=== PATIENT | female | born 1960 | race Caucasian/White ===

== ENCOUNTER 2016-11-16 14:34 | Emergency (ER) | payer MEDICAID ==
[~2016-11-16] VITALS: Wt 65.5 kg
[~2016-11-16 14:34] MED LIST: ACET1TAB40 PO; CALC600T11 PO; HYDR-3498 PO; IBUP-1542 PO; LEVO125T79 PO; LISI-524 PO; METO25TA4 PO; NAPR-260 PO
[2016-11-16] MEDS ORDERED: traMADol 50 MG TAB PO ONE (17:30)
[2016-11-16] MEDS ORDERED: ONDANSETRON (ODT) 4 MG TAB ODT STA (17:30)
[2016-11-16 17:39] LABS: URINE BLOOD (Dip) POC Negative (NEGATIVE)
[2016-11-16] MEDS ORDERED: ULT50 PO (17:51)
[2016-11-16 18:31] VITALS: BP 137/89; PULSE 74; RESP 18; TEMP 98.1
--- NOTE | 2016-11-16 18:43 | ERD ---
ER Documentation Chief Complaint Date/Time DATE: 11/16/16 TIME: 18:42 Chief Complaint abd pain radiating to head since last night. no neuro def HPI Patient is a 48-year-old female with hypertension who presents with headache and abdominal pain. She said the pain comes and goes. It is been there for 2 days. She has no fevers. She has no nausea, vomiting, or diarrhea. She tried to Tylenol. Upon review of old medical records the patient has multiple visits to the ER for similar type complaints. Her primary doctor is Dr. Jamie Adame. ROS All systems reviewed and are negative except as per history of present illness. Medications Home Meds Active Scripts Tramadol HCl (Tramadol HCl) 50 Mg Tablet, 50 MG PO Q6 Y for PAIN, #7 TAB Prov:MENA GUZMAN MD 11/16/16 Acetaminophen with Codeine (Acetaminophen-Cod #3 Tablet) 1 Each Tablet, 1 TAB PO Q6H Y for PAIN, #14 TAB Prov:MARY HUMMEL MD 08/19/16 Ibuprofen* (Motrin*) 600 Mg Tab, 600 MG PO Q6, #20 TAB Prov:MARY HUMMEL MD 08/19/16 Ibuprofen* (Motrin*) 600 Mg Tab, 600 MG PO Q6, #30 TAB Prov:LUCIA REYES 06/07/16 Naproxen* (Naprosyn*) 500 Mg Tablet, 500 MG PO BID Y for PAIN AND/OR INFLAMMATION, #20 TAB Prov:MARIANA COX DO 05/05/16 Hydrocodone Bit-Acetaminophen* ([place]*) 5-325 Mg Tab, 1 TAB PO Q6 Y for PAIN, # 10 TAB Prov:SCOTT POOLE PA-C 03/28/16 Reported Medications Calcium Carbonate* (Calcium Carbonate*) 600 MG Ca Tab, 600 MG PO TID, TAB 05/05/16 Levothyroxine Sodium* (Synthroid*) 125 Mcg Tablet, 125 MCG PO BEFORE BREAKFAST, #30 TAB 05/05/16 Metoprolol Tartrate* (Lopressor*) 25 Mg Tablet, 25 MG PO BID, #60 TAB 01/28/16 Lisinopril* (Zestril*) 10 Mg Tablet, 10 MG PO DAILY 11/09/12 Allergies Allergies: Coded Allergies: No Known Drug Allergies (Verified Allergy, Unknown, 06/07/16) Uncoded Allergies: GENERAL ANESTHESIA (Allergy, Intermediate, GENERALIZED SKIN RASH, 02/25/14) PMhx/Soc History of Surgery: Yes (CHOLECYSTECTOMY, THYROIDECTOMY ) Anesthesia Reaction: No Hx Neurological Disorder: Yes (MIGRAINES) Hx Respiratory Disorders: No Hx Cardiac Disorders: Yes (HTN) Hx Psychiatric Problems: No Hx Miscellaneous Medical Probl: Yes (PRE-DIABETES ) Hx Alcohol Use: No Hx Substance Use: No Hx Tobacco Use: No Smoking Status: Never smoker FmHx Family History: diabetes Physical Exam Vitals Vital Signs Date Time Temp Pulse Resp B/P Pulse Ox O2 Delivery O2 Flow Rate FiO2 11/16/16 18:31 98.1 74 18 137/89 97 11/16/16 14:37 98.7 81 20 148/76 98 Physical Exam Const: No acute distress Head: Atraumatic Eyes: Normal Conjunctiva ENT: Normal External Ears, Nose and Mouth. Neck: Full range of motion..~ No meningismus. Resp: Clear to auscultation bilaterally Cardio: Regular rate and rhythm, no murmurs Abd: Soft, non tender, non distended. Normal bowel sounds Skin: No petechiae or rashes Back: No midline or flank tenderness Ext: No cyanosis, or edema Neur: Awake and alert Psych: Normal Mood and Affect Results 24 hrs Laboratory Tests Test 11/16/16 17:39 Bedside Urine Blood Negative Bedside Urine Glucose (UA) Negative Bedside Urine Ketones (LAB) Negative Bedside Urine Leukocyte Esterase (L Negative Bedside Urine Nitrite (LAB) Negative Bedside Urine Protein (LAB) 1+ Bedside Urine pH (LAB) 8.5 Current Medications Medications (Trade) Dose Ordered Sig/Jonelle Route PRN Reason Start Time Stop Time Status Last Admin Dose Admin Ondansetron HCl (Zofran Odt) 4 mg ONCE STAT ODT 11/16/16 17:30 11/16/16 17:31 DC 11/16/16 17:34 Tramadol HCl (Ultram) 50 mg ONCE ONCE PO 11/16/16 17:30 11/16/16 17:31 DC 11/16/16 17:39 Procedures/MDM Patient is a 56-year-old female with hypertension who presents with headache and abdominal pain. Her physical exam is benign. She has multiple visits for similar type complaints. Urine dip is negative for infection. She was given tramadol and Zofran for symptomatically relief. At this point I doubt intracranial hemorrhage or stroke. I doubt serious intra-abdominal process such as cholecystitis, pancreatitis, appendicitis, or bowel obstruction. Do not believe the patient requires further workup. I do believe she requires close follow-up with her primary doctor tomorrow morning for reevaluation. She can return sooner for any worsening symptoms. Departure Diagnosis: Primary Impression: Headache Headache type: unspecified Headache chronicity pattern: acute headache Intractability: not intractable Qualified Code: R51 - Acute nonintractable headache, unspecified headache type Additional Impression: Abdominal pain Abdominal location: unspecified location Qualified Code: R10.9 - Abdominal pain, unspecified location Condition: Fair Patient Instructions: Abdominal Pain, Self-Care for Headaches Additional Instructions: Llame al doctor MAANA y jennifer izabela HANS PARA DENTRO DE 1-2 AGUILERA.Dgale a la secretaria que nosotros le instruimos hacer esta hans.Avise o llame si tiwari condicin se empeora antes de la hans. Regresa aqui si peor o no mejor. MENA GUZMAN MD Nov 16, 2016 18:43
== END 2016-11-16 18:33 | disposition home or self-care (01) ==
LOC: E/R 14:34
DX: R51 Headache (principal); R10.9 Unspecified abdominal pain; I10 Essential (primary) hypertension
CPT/HCPCS: 81003; Z7502; Z7610; 99283

== ENCOUNTER 2016-11-29 20:48 | Emergency (ER) | payer MEDICAID ==
[~2016-11-29] VITALS: Ht 160 cm; Wt 80.0 kg
[~2016-11-29 20:48] MED LIST changes: +LEVO125T PO; -LEVO125T79 PO; +TRAM50TA2 PO
[2016-11-29 21:56] VITALS: Ht 160 cm; Wt 80.0 kg
[2016-11-30] MEDS ORDERED: KETOROLAC 30 MG INJ IM STA (00:47)
[2016-11-30] MEDS ORDERED: LORA-441 PO (00:49)
--- NOTE | 2016-11-30 00:53 | ERD ---
ER Documentation Chief Complaint Date/Time DATE: 11/30/16 TIME: 00:50 Chief Complaint headache, l side pain HPI 56-year-old woman here with multiple complaints including headache similar to previous episodes, sharp nonexertional nonradiating chest pain, and left upper abdominal pain. She has had all these symptoms before and states she has them about twice per week she has had multiple previous ED evaluations and workups, and imaging studies have previously all been unremarkable. Patient denies vomiting or diarrhea, no weight loss, no blood per rectum or melena, no exertional chest pain, no shortness of breath, no suicidal homicidal ideation. ROS All systems reviewed and are negative except as per history of present illness. Medications Home Meds Active Scripts Lorazepam* (Ativan*) 0.5 Mg Tablet, 0.5 MG PO Q8H Y for ANXIETY, #15 TAB Prov:VAL HORTON MD 11/30/16 Tramadol HCl (Tramadol HCl) 50 Mg Tablet, 50 MG PO Q6 Y for PAIN, #7 TAB Prov:MENA GUZMAN MD 11/16/16 Acetaminophen with Codeine (Acetaminophen-Cod #3 Tablet) 1 Each Tablet, 1 TAB PO Q6H Y for PAIN, #14 TAB Prov:MARY HUMMEL MD 08/19/16 Ibuprofen* (Motrin*) 600 Mg Tab, 600 MG PO Q6, #20 TAB Prov:MARY HUMMEL MD 08/19/16 Ibuprofen* (Motrin*) 600 Mg Tab, 600 MG PO Q6, #30 TAB Prov:LUCIA REYES 06/07/16 Naproxen* (Naprosyn*) 500 Mg Tablet, 500 MG PO BID Y for PAIN AND/OR INFLAMMATION, #20 TAB Prov:MARIANA COX DO 05/05/16 Hydrocodone Bit-Acetaminophen* ([place]*) 5-325 Mg Tab, 1 TAB PO Q6 Y for PAIN, # 10 TAB Prov:SCOTT POOLE PA-C 03/28/16 Reported Medications Calcium Carbonate* (Calcium Carbonate*) 600 MG Ca Tab, 600 MG PO TID, TAB 05/05/16 Levothyroxine Sodium* (Synthroid*) 125 Mcg Tablet, 125 MCG PO BEFORE BREAKFAST, #30 TAB 05/05/16 Metoprolol Tartrate* (Lopressor*) 25 Mg Tablet, 25 MG PO BID, #60 TAB 01/28/16 Lisinopril* (Zestril*) 10 Mg Tablet, 10 MG PO DAILY 11/09/12 Allergies Allergies: Coded Allergies: No Known Drug Allergies (Verified Allergy, Unknown, 06/07/16) Uncoded Allergies: GENERAL ANESTHESIA (Allergy, Intermediate, GENERALIZED SKIN RASH, 02/25/14) PMhx/Soc Chronic recurrent headaches, anxiety, hypertension, previous cholecystectomy, hypothyroidism History of Surgery: Yes (CHOLECYSTECTOMY, THYROIDECTOMY ) Anesthesia Reaction: No Hx Neurological Disorder: Yes (MIGRAINES) Hx Respiratory Disorders: No Hx Cardiac Disorders: Yes (HTN) Hx Psychiatric Problems: No Hx Miscellaneous Medical Probl: Yes (PRE-DIABETES ) Hx Alcohol Use: No Hx Substance Use: No Hx Tobacco Use: No Smoking Status: Never smoker FmHx Family History: diabetes Physical Exam Vitals Vital Signs Date Time Temp Pulse Resp B/P Pulse Ox O2 Delivery O2 Flow Rate FiO2 11/30/16 01:20 99.0 75 20 135/80 98 11/29/16 21:56 99.0 73 20 140/84 98 Physical Exam GENERAL: Well-developed, well-nourished, severely anxious and tearful HEENT: Moist mucous membranes, pink conjunctiva, no cervical spine tenderness or step-off deformities, no goiter, no jaundice or icterus, extraocular movements intact without pain. No submandibular induration, and no pharyngeal erythema NEURO: Alert and oriented 3, cranial nerves II through XII intact bilaterally, pupils equal round reactive to light, no focal deficits or facial asymmetry, sensation intact distally Strength 5/5 in upper and lower extremities bilaterally CARDIAC: Regular rate and rhythm, no murmurs rubs or gallops LUNGS: Clear bilaterally no wheezing crackles or stridor ABDOMEN: Soft nontender, no guarding, no rigidity, no rebound, no psoas sign no obturator sign. Normoactive bowel sounds SKIN: Warm and dry to touch, no abrasions, contusions, or hematomas, no lacerations, no ecchymosis, no target lesions, and without ulcers EXTREMITIES: No clubbing cyanosis or edema, calves are bilaterally symmetrical, no Homans sign, no popliteal cord sign. Distal pulses equal and bilateral PSYCH: Anxious Results 24 hrs Current Medications Medications (Trade) Dose Ordered Sig/Jonelle Route PRN Reason Start Time Stop Time Status Last Admin Dose Admin Ketorolac Tromethamine (Toradol) 30 mg ONCE STAT IM 11/30/16 00:47 11/30/16 00:56 DC 11/30/16 01:07 Lorazepam (Ativan) 1 mg ONCE ONCE PO 11/30/16 01:00 11/30/16 01:01 DC 11/30/16 01:07 Procedures/MDM I administered lorazepam 1 mg p.o. and Toradol 15 mg intramuscular injection for pain control with good relief. EKG performed, read by me: 65 bpm, normal sinus rhythm, normal axis, no acute ST segment changes, narrow QRS complex, with good R-wave progression in precordial leads. Normal EKG I reviewed the patient's past medical history she has had multiple similar presentations for headaches and abdominal pain which are her complaints today. She has had at least 6 CT scans of the brain which are mostly unremarkable. Previous ED workups have all been unremarkable and is seems patient is suffering from severe anxiety and depression. My recommendations were provided to her for outpatient management I find no reason at this time for any further intervention, imaging, or admission Differential diagnoses considered, included but not limited to acute coronary syndrome, pulmonary embolism, aortic dissection, abdominal aortic aneurysm, sepsis, stroke, meningitis, encephalitis, pneumonia, appendicitis, cholecystitis , bowel obstruction, pyelonephritis, nephrolithiasis, cystitis, as well as metabolic, hematologic, and electrolyte abnormalities. As well as abscess, cellulitis, fractures, and dislocations. Patient feels much better at this time, and vital signs are normal, symptoms have improved. I did give strict instructions to return to the ED if symptoms continue or worsen, patient will otherwise follow-up with primary care physician. Patient understood instructions and agreed to plan. Departure Diagnosis: Primary Impression: Anxiety Additional Impressions: Headache Headache type: tension-type Headache chronicity pattern: acute headache Intractability: not intractable Qualified Code: G44.209 - Acute non intractable tension-type headache Chronic pain Chronic pain type: chronic pain syndrome Qualified Code: G89.4 - Chronic pain syndrome Condition: Good Patient Instructions: Anxiety Reaction, Headache, Tension VAL HORTON MD Nov 30, 2016 00:53
[2016-11-30] MEDS ORDERED: LORAZEPAM 1 MG TAB PO ONE (01:00)
[2016-11-30 01:20] VITALS: BP 135/80; PULSE 75; RESP 20; TEMP 99
== END 2016-11-30 01:20 | disposition home or self-care (01) ==
LOC: E/R 20:48
DX: F41.9 Anxiety disorder, unspecified (principal); G44.209 Tension-type headache, unspecified, not intractable; G89.4 Chronic pain syndrome; I10 Essential (primary) hypertension; E03.9 Hypothyroidism, unspecified
CPT/HCPCS: J1885; Z7610; 93005; 96372

== ENCOUNTER 2017-02-01 06:57 | Emergency (ER) | payer MEDICAID ==
[~2017-02-01] VITALS: Ht 157.5 cm; Wt 78.0 kg
[~2017-02-01 06:57] MED LIST changes: +LORA-441 PO
[2017-02-01 07:01] VITALS: Ht 157.5 cm; Wt 78.0 kg
[2017-02-01] MEDS ORDERED: IBUP-1542 PO (07:21)
[2017-02-01] MEDS ORDERED: IBUPROFEN 800 MG TAB PO ONE (07:30)
--- NOTE | 2017-02-01 07:30 | ERD ---
ER Documentation Chief Complaint Date/Time DATE: 02/01/17 TIME: 07:30 Chief Complaint left arm pain x 1 week HPI Patient is a 48-year-old female with anxiety and hypertension who presents with left-sided arm pain. She said that she has left-sided arm pain for the past 1 week. She said that she feels numbness to her fingers which lasts seconds at a time. She tried MAPAP. She called her primary doctor but there was no appointment available. She is also requesting an allergy medicine. Upon review of old medical record she has multiple visits to the ER for various pain complaints. Review of the emergency department information exchange shows multiple visits to the emergency department as well. ROS All systems reviewed and are negative except as per history of present illness. Medications Home Meds Active Scripts Ibuprofen* (Motrin*) 600 Mg Tab, 600 MG PO Q6H Y for PAIN AND OR ELEVATED TEMP, #30 TAB Prov:MENA GUZMAN MD 02/01/17 Lorazepam* (Ativan*) 0.5 Mg Tablet, 0.5 MG PO Q8H Y for ANXIETY, #15 TAB Prov:VAL HORTON MD 11/30/16 Tramadol HCl (Tramadol HCl) 50 Mg Tablet, 50 MG PO Q6 Y for PAIN, #7 TAB Prov:MENA GUZMAN MD 11/16/16 Acetaminophen with Codeine (Acetaminophen-Cod #3 Tablet) 1 Each Tablet, 1 TAB PO Q6H Y for PAIN, #14 TAB Prov:MARY HUMMEL MD 08/19/16 Ibuprofen* (Motrin*) 600 Mg Tab, 600 MG PO Q6, #20 TAB Prov:MARY HUMMEL MD 08/19/16 Ibuprofen* (Motrin*) 600 Mg Tab, 600 MG PO Q6, #30 TAB Prov:LUCIA REYES 06/07/16 Naproxen* (Naprosyn*) 500 Mg Tablet, 500 MG PO BID Y for PAIN AND/OR INFLAMMATION, #20 TAB Prov:MARIANA COX DO 05/05/16 Hydrocodone Bit-Acetaminophen* ([place]*) 5-325 Mg Tab, 1 TAB PO Q6 Y for PAIN, # 10 TAB Prov:SCOTT POOLE PA-C 03/28/16 Reported Medications Calcium Carbonate* (Calcium Carbonate*) 600 MG Ca Tab, 600 MG PO TID, TAB 7/6/16 Levothyroxine Sodium* (Synthroid*) 125 Mcg Tablet, 125 MCG PO BEFORE BREAKFAST, #30 TAB 05/05/16 Metoprolol Tartrate* (Lopressor*) 25 Mg Tablet, 25 MG PO BID, #60 TAB 01/28/16 Lisinopril* (Zestril*) 10 Mg Tablet, 10 MG PO DAILY 11/09/12 Allergies Allergies: Coded Allergies: No Known Allergy (Unverified , 02/01/17) PMhx/Soc History of Surgery: Yes (CHOLECYSTECTOMY 2012, THYROIDECTOMY 2015 ) Anesthesia Reaction: No Hx Neurological Disorder: Yes (MIGRAINES) Hx Respiratory Disorders: No Hx Cardiac Disorders: Yes (HTN) Hx Psychiatric Problems: No Hx Miscellaneous Medical Probl: Yes (PRE-DIABETES ) Hx Alcohol Use: No Hx Substance Use: No Hx Tobacco Use: No FmHx Family History: No coronary disease Physical Exam Vitals Vital Signs Date Time Temp Pulse Resp B/P Pulse Ox O2 Delivery O2 Flow Rate FiO2 02/01/17 07:01 98.1 67 18 140/80 99 Physical Exam Const: No acute distress Head: Atraumatic Eyes: Normal Conjunctiva ENT: Normal External Ears, Nose and Mouth. Neck: Full range of motion..~ No meningismus. Resp: Clear to auscultation bilaterally Cardio: Regular rate and rhythm, no murmurs Abd: Soft, non tender, non distended. Normal bowel sounds Skin: No petechiae or rashes Back: No midline or flank tenderness Ext: No cyanosis, or edema, no deformity noted, pulses are 2+ bilateral upper extremities Neur: Awake and alert Psych: Normal Mood and Affect Results 24 hrs Current Medications Medications (Trade) Dose Ordered Sig/Jonelle Route PRN Reason Start Time Stop Time Status Last Admin Dose Admin Ibuprofen (Motrin) 800 mg ONCE ONCE PO 02/01/17 07:30 02/01/17 07:31 DC 02/01/17 07:27 Procedures/MDM EKG read by me: Rate/Rhythm: Regular rate and rhythm at a normal rate Intervals: Normal Impression: No evidence of ischemia or arrhythmia Patient is a 56-year-old female with left sided arm pain. Her EKG is normal. She has no neurovascular compromise. She has good nerve function in the left upper extremity. She is able to give an okay sign, able to give a thumbs up, able to touch all fingers to her thumb, able to spread fingers. At this point I believe this is acute on chronic pain. I do not believe she requires further workup at this time. The patient has a normal EKG. The patient will need to follow-up with her primary doctor within 1-2 days. She can return for any worsening symptoms. Departure Diagnosis: Primary Impression: Pain of left arm Condition: Fair Patient Instructions: Muscle Strain, Extremity Referrals: SILVIA STRANGE MD (PCP) Additional Instructions: Llame al doctor MAANA y jennifer izabela HANS PARA DENTRO DE 1-2 AGUILERA.Dgale a la secretaria que nosotros le instruimos hacer esta hans.Avise o llame si tiwari condicin se empeora antes de la hans. Regresa aqui si peor o no mejor. MENA GUZMAN MD Feb 01, 2017 07:30
[2017-02-01] MEDS ORDERED: FLUT9.9S NASAL (07:36)
== END 2017-02-01 07:53 | disposition home or self-care (01) ==
LOC: FTE 06:57
DX: M79.602 Pain in left arm (principal); I10 Essential (primary) hypertension
CPT/HCPCS: 93005; Z7502; Z7610

== ENCOUNTER 2017-04-04 07:03 | Emergency (ER) | payer MEDICAID ==
[~2017-04-04] VITALS: Ht 154.9 cm; Wt 66.5 kg
[~2017-04-04 07:03] MED LIST changes: +FLUT9.9S NASAL
[2017-04-04 07:06] VITALS: Ht 154.9 cm; Wt 66.5 kg
[2017-04-04 08:00] LABS: ADD UMIC NO; URINE BILIRUBIN (Dip) NEGATIVE (NEGATIVE); URINE BLOOD (Dip) NEGATIVE (NEGATIVE); URINE COLOR LT. YELLOW (YELLOW); URINE GLUCOSE (Dip) NEGATIVE (NEGATIVE); URINE KETONES (Dip) NEGATIVE (NEGATIVE); URINE LEUKOCYTE ESTERASE (Dip) NEGATIVE (NEGATIVE); URINE NITRITE (Dip) NEGATIVE (NEGATIVE); URINE TOTAL PROTEIN (Dip) NEGATIVE (NEGATIVE); URINE UROBILINOGEN (Dip) 0.2 E.U./dL (0.1-1.0)
[2017-04-04] MEDS ORDERED: IBUP-1542 PO (08:14)
[2017-04-04] MEDS ORDERED: FLUC150T17 PO (08:14)
--- NOTE | 2017-04-04 08:17 | ERD ---
ER Documentation Chief Complaint Date/Time DATE: 04/04/17 TIME: 08:15 Chief Complaint painful urination and back pain since tuesday HPI This 48-year-old female complains of a 3 day history of some vaginal irritation and some mild dysuria. She has multiple complaints as well including with low back pain and left upper chest wall pain. She denies any fevers, vomiting, shortness of breath or sustained anterior chest pain. Patient has a noticeable vaginal discharge ROS All systems reviewed and are negative except as per history of present illness. Medications Home Meds Active Scripts Fluconazole* (Diflucan*) 150 Mg Tablet, 150 MG PO ONCE, #1 TAB Prov:MARY HUMMEL MD 04/04/17 Ibuprofen* (Motrin*) 600 Mg Tab, 600 MG PO Q6, #20 TAB Prov:MARY HUMMEL MD 04/04/17 Fluticasone Propionate (Flonase Allergy Relief) 9.9 Ml [place].susp, 1 SPRAY NASAL DAILY, #1 BOTTLE TO EACH NOSTRIL Prov:MENA GUZMAN MD 02/01/17 Ibuprofen* (Motrin*) 600 Mg Tab, 600 MG PO Q6H Y for PAIN AND OR ELEVATED TEMP, #30 TAB Prov:MENA GUZMAN MD 02/01/17 Lorazepam* (Ativan*) 0.5 Mg Tablet, 0.5 MG PO Q8H Y for ANXIETY, #15 TAB Prov:VAL HORTON MD 11/30/16 Tramadol HCl (Tramadol HCl) 50 Mg Tablet, 50 MG PO Q6 Y for PAIN, #7 TAB Prov:MENA GUZMAN MD 11/16/16 Acetaminophen with Codeine (Acetaminophen-Cod #3 Tablet) 1 Each Tablet, 1 TAB PO Q6H Y for PAIN, #14 TAB Prov:MARY HUMMEL MD 08/19/16 Ibuprofen* (Motrin*) 600 Mg Tab, 600 MG PO Q6, #20 TAB Prov:MARY HUMMEL MD 08/19/16 Ibuprofen* (Motrin*) 600 Mg Tab, 600 MG PO Q6, #30 TAB Prov:LUCIA REYES 06/07/16 Naproxen* (Naprosyn*) 500 Mg Tablet, 500 MG PO BID Y for PAIN AND/OR INFLAMMATION, #20 TAB Prov:MARIANA COX DO 05/05/16 Hydrocodone Bit-Acetaminophen* ([place]*) 5-325 Mg Tab, 1 TAB PO Q6 Y for PAIN, # 10 TAB Prov:SCOTT POOLE PA-C 03/28/16 Reported Medications Calcium Carbonate* (Calcium Carbonate*) 600 MG Ca Tab, 600 MG PO TID, TAB 05/05/16 Levothyroxine Sodium* (Synthroid*) 125 Mcg Tablet, 125 MCG PO BEFORE BREAKFAST, #30 TAB 05/05/16 Metoprolol Tartrate* (Lopressor*) 25 Mg Tablet, 25 MG PO BID, #60 TAB 01/28/16 Lisinopril* (Zestril*) 10 Mg Tablet, 10 MG PO DAILY 11/09/12 Allergies Allergies: Coded Allergies: No Known Allergy (Unverified , 04/04/17) PMhx/Soc History of Surgery: Yes (CHOLECYSTECTOMY 2012, THYROIDECTOMY 2015 ) Anesthesia Reaction: No Hx Neurological Disorder: Yes (MIGRAINES) Hx Respiratory Disorders: No Hx Cardiac Disorders: Yes (HTN) Hx Psychiatric Problems: No Hx Miscellaneous Medical Probl: Yes (PRE-DIABETES ) Hx Alcohol Use: No Hx Substance Use: No Hx Tobacco Use: No Smoking Status: Never smoker Physical Exam Vitals Vital Signs Date Time Temp Pulse Resp B/P Pulse Ox O2 Delivery O2 Flow Rate FiO2 04/04/17 07:06 98.3 77 17 131/76 94 Physical Exam Const: [] Alert, [id number] per Head: Atraumatic Eyes: Normal Conjunctiva ENT: Normal External Ears, Nose and Mouth. Neck: Full range of motion..~ No meningismus. Resp: Clear to auscultation bilaterally Cardio: Regular rate and rhythm, no murmurs. Mild reproducible left upper chest wall pain below the clavicle. Abd: Soft, non tender, non distended. Normal bowel sounds Skin: No petechiae or rashes Back: No midline or flank tenderness Ext: No cyanosis, or edema Neur: Awake and alert Psych: Normal Mood and Affect Results 24 hrs Laboratory Tests Test 04/04/17 07:25 Urine Color LT. YELLOW Urine Clarity CLEAR Urine pH 6.0 Urine Specific [place] <=1.005 Urine Ketones NEGATIVE Urine Nitrite NEGATIVE Urine Bilirubin NEGATIVE Urine Urobilinogen 0.2 E.U./dL Urine Leukocyte Esterase NEGATIVE Urine Hemoglobin NEGATIVE Urine Glucose NEGATIVE% Urine Total Protein NEGATIVE Procedures/MDM And is negative for leukocytes, nitrites, blood glucose. EKG: Rate/Rhythm: [Normal Sinus Rhythm] rate equals 64 QRS, ST, T-waves: [No changes consistent w/ acute ischemia] Impression: [No evidence of ischemia or arrhythmia]. Impression abnormal EKG Patient presents with multiple complaints including dysuria and vaginal irritation, low back pain left upper chest wall.. She will be treated empirically for vaginitis with Diflucan and ibuprofen for low back pain. The patient was stable with no new complaints during the ER course. Clinically, there is no current evidence to suggest meningitis, sepsis, acute abdomen, aortic dissection, pneumonia, acute coronary syndrome, pulmonary embolism, or any other emergent condition appearing to require further evaluation or hospitalization. The patient should certainly return for any new or worsening symptoms per the aftercare instructions. They should otherwise follow-up with her primary care doctor for reevaluation this week. Departure Diagnosis: Primary Impression: Genitourinary symptoms Additional Impressions: Back pain Back pain location: low back pain Chronicity: unspecified Back pain laterality: unspecified Sciatica presence: without sciatica Qualified Code: M54.5 - Low back pain without sciatica, unspecified back pain laterality, unspecified chronicity Chest wall pain Condition: Stable Patient Instructions: Dysuria, Back And Neck Pain, General [facility]errals[facility] Usted se cameron hecho un examen mdico de control que le indica que no est en [place] condicin que requiera tratamiento urgente en el Departamento de Emergencia. Un estudio ms profundo y el tratamiento de tiwari condicin pueden esperar sin ningn riesgo hasta que usted sea atendida/o en el consultorio de tiwari mdico o [place] cl vel. Es responsabilidad suya arreglar [place] kiesha para el seguimiento del ct. MANEJO DE CONDICIONES NO URGENTES EN EL FUTURO 1) Si usted tiene un mdico de atencin primaria: Usted debera llamar a tiwari mdico de atencin primaria antes de venir al departamento de emergencia. Despus de las horas de consultorio, tiwari doctor o tiwari asociado/a est disponible por telfono. El mdico o enfermero de david en el servicio telefnico puede asesorarle por kathleen medio para atender el problema, o ct contrario se puede programar [place] kiesha. 2) Si usted no tiene un mdico de atencin primaria: Llame al mdico o clnica de referencia que aparece abajo erma las horas de consultorio para hacer [place] kiesha para que le vean. CLINICAS: [facility] [phone] [facility] [facility] [phone] [address] [facility] [facility] [phone] [address] [facility]. [place] [phone] [facility] [place] [phone] [address] [facility]. [phone] [address] Additional Instructions: Examines normal hoy. Cheque otro vez con tiwari doctor primario en el proximo bishop or regresa para mas o nueva simptomas. MARY HUMMEL MD Apr 04, 2017 08:17
== END 2017-04-04 08:26 | disposition home or self-care (01) ==
LOC: FTE 07:03
DX: R30.0 Dysuria (principal); N89.8 Other specified noninflammatory disorders of vagina; M54.5 Low back pain; R07.89 Other chest pain; I10 Essential (primary) hypertension
CPT/HCPCS: 81003; 93005

== ENCOUNTER 2017-10-27 15:46 | Observation (INO) | END 2017-10-28 16:00 | disposition home or self-care (01) ==

== ENCOUNTER 2018-04-16 12:08 | Emergency (ER) | END 2018-04-16 17:36 | disposition home or self-care (01) ==

== ENCOUNTER 2018-05-13 11:56 | Inpatient (IN) | END 2018-05-16 16:58 | disposition home or self-care (01) | DRG 440 ==

== ENCOUNTER 2018-05-17 14:04 | Emergency (ER) | END 2018-05-17 15:56 | disposition home or self-care (01) ==

== ENCOUNTER 2018-06-17 08:52 | Emergency (ER) | END 2018-06-17 13:58 | disposition home or self-care (01) ==

== ENCOUNTER 2018-06-22 17:34 | Emergency (ER) | END 2018-06-22 21:28 | disposition home or self-care (01) ==

== ENCOUNTER 2018-09-21 06:44 | Emergency (ER) | END 2018-09-21 08:45 | disposition home or self-care (01) ==

== ENCOUNTER 2018-09-28 23:06 | Emergency (ER) | END 2018-09-29 02:55 | disposition home or self-care (01) ==

== ENCOUNTER 2019-01-07 07:30 | Emergency (ER) | payer MEDICAID ==
[~2019-01-07] VITALS: Wt 62.7 kg
[~2019-01-07 07:30] MED LIST changes: +ACET-2047 PO; -ACET1TAB40 PO; -CALC600T11 PO; +CHOL200056 PO; -FLUT9.9S NASAL; -HYDR-3498 PO; -IBUP-1542 PO; -LEVO125T PO; +LEVO50TA7 PO; -LISI-524 PO; +LISI10TA2 PO; -LORA-441 PO; -METO25TA4 PO; -NAPR-260 PO; +PANT40TA4 PO; +SUCR1TAB56 PO; -TRAM50TA2 PO
--- NOTE | 2019-01-07 09:21 | ERD ---
ER Documentation Chief Complaint Chief Complaint PAIN WITH URINATION X4 DAYS, NO N/V, NO FEVER, NO HEMATURIA, NO FLANK PAIN HPI This is a Bahamian-speaking 58-year-old female with hx of cholecystectomy, gastritis and pancreatitis who presents to the ED with complaints of dysuria times 4 days. No hematuria. No vaginal discharge. She is also complaining of mid epigastric and left lower quadrant pain that radiates towards her mid upper back. She states she was treated for pancreatitis over 1 year ago and believes today's symptoms are similar. Pain is temporarily relieved with Aleve and Naprosyn at home. She denies any associated fevers, chills, nausea, vomiting, flank pain, hematochezia, rectal bleeding or any other symptoms. ROS All systems reviewed and are negative except as per history of present illness. Medications Home Meds Active Scripts Sucralfate* (Carafate*) 1 Gm Tab, 1 GM PO QID, #30 TAB Prov:SALONI GARCÍAYamil 09/29/18 Reported Medications Lisinopril* (Lisinopril*) 10 Mg Tablet, 10 MG PO DAILY, #30 TAB 06/22/18 Pantoprazole* (Pantoprazole*) 40 Mg Tablet.dr, 40 MG PO AC BREAKFAST DINNER, TAB 06/22/18 Acetaminophen* (Acetaminophen*) 650 Mg Tablet, 650 MG PO NEEDED PRN for PAIN AND OR ELEVATED TEMP, #30 TAB 06/17/18 Cholecalciferol (Vitamin D3) (Vitamin D-3) 2,000 Unit Tablet, 2000 UNIT PO DAILY, TAB 06/17/18 Levothyroxine Sodium* (Levothyroxine Sodium*) 50 Mcg Tablet, 50 MCG PO BEFORE BREAKFAST, #30 TAB 05/11/18 Allergies Allergies: Coded Allergies: aspirin (Unverified Allergy, Severe, anaphylaxis, 09/21/18) PMhx/Soc History of Surgery: Yes (CHOLECYSTECTOMY,TONSILLECTOMY, Thyroidectomy) Anesthesia Reaction: No Hx Neurological Disorder: Yes (ANDERSON) Hx Respiratory Disorders: No Hx Cardiac Disorders: Yes (HTN) Hx Psychiatric Problems: Yes (Anxiety) Hx Miscellaneous Medical Probl: Yes (Thyroid sx, pre dm) Hx Alcohol Use: No Hx Substance Use: No Hx Tobacco Use: No Physical Exam Vitals Vital Signs Date Temp Pulse Resp B/P (MAP) Pulse Ox O2 O2 Flow FiO2 Time Delivery Rate 01/07/19 98.0 96 17 130/72 98 Room Air 14:49 (91) 01/07/19 97.2 71 17 131/80 97 07:34 (97) Physical Exam Const: No acute distress Head: Atraumatic Eyes: Normal Conjunctiva ENT: Normal External Ears, Nose and Mouth. Neck: Full range of motion. No meningismus. Resp: Clear to auscultation bilaterally Cardio: Regular rate and rhythm, no murmurs Abd: Soft, + moderate epigastric and left lower quadrant tenderness, no rebound or guarding, non distended. Normal bowel sounds. Negative Mcburney's point Skin: No petechiae or rashes Back: + Mild left CVA tenderness. No midline tenderness. Ext: No cyanosis, or edema Neur: Awake and alert Psych: Normal Mood and Affect Result Diagram: 01/07/1992501/07/19925 Results 24 hrs Laboratory Tests Test 01/07/19 09:26 White Blood Count 5.7 10^3/ul Red Blood Count 4.91 10^6/ul Hemoglobin 14.5 g/dl Hematocrit 43.7 % Mean Corpuscular Volume 89.0 fl Mean Corpuscular Hemoglobin 29.5 pg Mean Corpuscular Hemoglobin Concent 33.2 g/dl Red Cell Distribution Width 12.1 % Platelet Count 297 10^3/UL Mean Platelet Volume 9.5 fl Immature Granulocytes % 0.200 % Neutrophils % 67.3 % Lymphocytes % 24.1 % Monocytes % 6.3 % Eosinophils % 1.4 % Basophils % 0.7 % Nucleated Red Blood Cells % 0.0 /100WBC Immature Granulocytes # 0.010 10^3/ul Neutrophils # 3.8 10^3/ul Lymphocytes # 1.4 10^3/ul Monocytes # 0.4 10^3/ul Eosinophils # 0.1 10^3/ul Basophils # 0.0 10^3/ul Nucleated Red Blood Cells # 0.0 10^3/ul Urine Color STRAW Urine Clarity CLEAR Urine pH 7.0 Urine Specific [place] 1.010 Urine Ketones NEGATIVE mg/dL Urine Nitrite NEGATIVE mg/dL Urine Bilirubin NEGATIVE mg/dL Urine Urobilinogen NEGATIVE mg/dL Urine Leukocyte Esterase NEGATIVE Pilar/ul Urine Hemoglobin NEGATIVE mg/dL Urine Glucose NEGATIVE mg/dL Urine Total Protein NEGATIVE mg/dl Sodium Level 142 mmol/L Potassium Level 4.2 mmol/L Chloride Level 101 mmol/L Carbon Dioxide Level 30 mmol/L Anion Gap 11 Blood Urea Nitrogen 12 mg/dl Creatinine 0.60 mg/dl Est Glomerular Filtrat Rate mL/min > 60 mL/min Glucose Level 103 mg/dl Calcium Level 10.2 mg/dl Total Bilirubin 0.7 mg/dl Direct Bilirubin 0.00 mg/dl Indirect Bilirubin 0.7 mg/dl Aspartate Amino Transf (AST/SGOT) 39 IU/L Alanine Aminotransferase (ALT/SGPT) 24 IU/L Alkaline Phosphatase 79 IU/L Total Protein 8.7 g/dl Albumin 4.9 g/dl Globulin 3.80 g/dl Albumin/Globulin Ratio 1.28 Lipase 192 U/L Current Medications Medications Dose Sig/Jonelle Start Time Status Last (Trade) Ordered Route PRN Stop Time Admin Dose Reason Admin Sodium 1,000 ml @ Q1H STAT 01/07/19 DC 01/07/19 Chloride 1,000 mls/hr IV 10:26 10:37 01/07/19 11:25 Morphine 4 mg ONCE STAT 01/07/19 DC 01/07/19 Sulfate IV 10:26 10:37 (morphine) 01/07/19 10:27 Ondansetron 4 mg ONCE STAT 01/07/19 DC 01/07/19 HCl (Zofran IV 10:26 10:37 Inj) 01/07/19 10:27 Procedures/MDM EMERGENT LABS AND DIAGNOSTIC STUDIES: Lab Results above were reviewed and interpreted by me as below. CBC: no e/o of systemic infection or severe anemia CMP: no e/o severe acidosis, alkalosis, renal failure, diabetic ketoacidosis, liver disease Urine: no significant hematuria or pyuria Lipase: 192 Radiology Results as interpreted by Radiology: COMPARISON: CT abdomen pelvis April 16, 2018 FINDINGS: The lung bases are clear of any infiltrate or nodule. No effusion is seen. The liver is of normal size, contour and attenuation with no mass or ductal dilatation. Gallbladder has been removed. There is presumed physiologic mild to moderate extrahepatic bile duct dilatation. No choledocholithiasis is present. No splenic, adrenal or pancreatic abnormalities present. Kidneys are of normal size and contour. No hydronephrosis, calculus or masses seen. Ureters are of normal course and caliber with no stone. No bladder mass or stone is present. Uterus appears normal. No adnexal masses seen. There is no aneurysm. No adenopathy is present. No bowel mass or obstruction is present. The appendix is normal. There are a few scattered diverticula in the colon. No phlegmon, ascites or pneumoperitoneum is visualized. The osseous structures are intact. IMPRESSION: No evidence of urolithiasis, obstructive uropathy, diverticulitis or appendicitis. Cholecystectomy. Diverticulosis. Nursing Notes Reviewed. Previous Medical Records requested via the Electronic Health Record. EMERGENCY DEPARTMENT COURSE / MEDICAL DECISION MAKIN yo F presents with epigastric abd pain and dysuria. The differential diagnosis includes but is not limited to appendicitis, pancreatitis, hepatitis, gastritis, GERD, peptic ulcer disease, bowel obstruction, diverticulitis, nephrolithiasis, pyelonephritis, PID, AAA and many others. She is afebrile and vital signs are stable. No signs of an acute surgical abdomen on physical exam. CBC normal. CMP including lipase normal. UA negative for any infection or hematuria. I discussed these results with pt with an geriatric assistant at bedside. Pt continued to complain of same pain and requested additional workup. She was given a liter of IVFs, as well as Morphine and Zofran for pain control. CT abd pelvis was ordered revealing diverticulosis without diverticulitis, otherwise unremarkable. On re-examination, abdominal pain had improved. Source of pain could be related to pt's gastritis vs diverticulosis but ultimately unclear. She does not need further emergent workup as her pain was adequately controlled and workup including CT was essentially unremarkable. She was given a copy of her results and told to follow up with her PCP this week. She can continue taking Naprosyn or Aleve for pain relief at home. Strict return precautions given. Prior to discharge, patients vital signs have been reviewed SPECIALIST FOLLOW UP RECOMMENDED: None Patient has been advised to follow up with primary care in 1-2 days. Departure Diagnosis: Primary Impression: Abdominal pain Abdominal location: epigastric Qualified Codes: R10.13 - Epigastric pain Condition: Stable Patient Instructions: Abdominal Pain [facility] Additional Instructions: Labs and workup negative. At this time, there is no clear cause for your pain. Continue taking Naprosyn and Aleve as needed for pain. Follow up with PCP this week. Return for any new or worsening symptoms. CLEVELAND FELIX PA-C Jan 07, 2019 09:21
[2019-01-07] MEDS ORDERED: ONDANSETRON 4 MG INJ IV STA (10:26)
[2019-01-07] MEDS ORDERED: morphine 4 MG/ML VIAL IV STA (10:26)
[2019-01-07] MEDS ORDERED: SOD CHLORIDE 0.9% 1,000 ML IV STA (10:26)
[2019-01-07 14:49] VITALS: BP 130/72; PULSE 96; RESP 17
== END 2019-01-07 14:51 | disposition home or self-care (01) ==
LOC: FTE 07:30
DX: R10.13 Epigastric pain (principal); I10 Essential (primary) hypertension
CPT/HCPCS: 74176; 80053; 81003; 83690; 85025; J2270; J2405; J7030; 36415; 96361; 96374; 96375

== ENCOUNTER 2019-01-20 23:53 | Emergency (ER) | payer MEDICAID ==
[~2019-01-20] VITALS: Ht 154.9 cm; Wt 66.8 kg
[2019-01-20 23:59] VITALS: Ht 154.9 cm; Wt 66.8 kg
[2019-01-21] MEDS ORDERED: HYDROmorphONE 1 MG/ML SYG IV STA (00:35)
[2019-01-21] MEDS ORDERED: ONDANSETRON 4 MG INJ IV STA (00:35)
--- NOTE | 2019-01-21 00:35 | ERD ---
ER Documentation Chief Complaint Chief Complaint Dysuria, lower L back pain , CWP, ANDERSON X 1 wk HPI This is 58-year-old female who is here with complaints of pain in her left flank for 1 week that is off and on. Is become more constant today and the pain radiates into the left lower quadrant. The pain is sharp and seems to be worse with movement but denies any trauma. Denies any lifting pushing pulling injury. She does have some urinary frequency but no hematuria no fever ROS All systems reviewed and are negative except as per history of present illness. Medications Home Meds Active Scripts Sucralfate* (Carafate*) 1 Gm Tab, 1 GM PO QID, #30 TAB Prov:SALONI GARCÍA 09/29/18 Reported Medications Lisinopril* (Lisinopril*) 10 Mg Tablet, 10 MG PO DAILY, #30 TAB 06/22/18 Pantoprazole* (Pantoprazole*) 40 Mg Tablet.dr, 40 MG PO AC BREAKFAST DINNER, TAB 06/22/18 Acetaminophen* (Acetaminophen*) 650 Mg Tablet, 650 MG PO NEEDED PRN for PAIN AND OR ELEVATED TEMP, #30 TAB 06/17/18 Cholecalciferol (Vitamin D3) (Vitamin D-3) 2,000 Unit Tablet, 2000 UNIT PO DAILY, TAB 06/17/18 Levothyroxine Sodium* (Levothyroxine Sodium*) 50 Mcg Tablet, 50 MCG PO BEFORE BREAKFAST, #30 TAB 05/11/18 Allergies Allergies: Coded Allergies: aspirin (Unverified Allergy, Severe, anaphylaxis, 09/21/18) PMhx/Soc History of Surgery: Yes (CHOLECYSTECTOMY,TONSILLECTOMY, Thyroidectomy) Anesthesia Reaction: No Hx Neurological Disorder: Yes (ANDERSON) Hx Respiratory Disorders: No Hx Cardiac Disorders: Yes (HTN) Hx Psychiatric Problems: Yes (Anxiety) Hx Miscellaneous Medical Probl: Yes (Thyroid sx, pre dm) Hx Alcohol Use: No Hx Substance Use: No Hx Tobacco Use: No FmHx Family History: No coronary disease Physical Exam Vitals Vital Signs Date Temp Pulse Resp B/P (MAP) Pulse Ox O2 O2 Flow FiO2 Time Delivery Rate 01/20/19 99.5 102 18 151/86 98 23:59 (107) Physical Exam Const: Well-developed, well-nourished Head: Atraumatic, normocephalic Eyes: Normal Conjunctiva, PERRLA, EOMI, normal sclera, no nystagmus ENT: Normal External Ears, Nose and Mouth, moist mucus membranes. Neck: Full range of motion. No meningismus, no lymphadenopathy. Resp: Clear to auscultation bilaterally, no wheezing, rhonchi, rales Cardio: Regular rate and rhythm, no murmurs, S1 S2 present Abd: Soft, non tender x 4, non distended. Normal bowel sounds, no guarding or rebound, no pulsitile abdominal masses or bruits Skin: No petechiae or rashes, no ecchymosis , no maculopapular rash Back: Tender left flank to palpation Ext: No cyanosis, or edema, FROM x 4, normal inspection, neurovascularly intact x 4 Neur: Awake and alert, STR 5/5 x 4, sensation intact x 4, no focal findings, cerebellum intact Psych: Normal Mood and Affect Result Diagram: 01/21/19 0102 01/21/19 0102 Results 24 hrs Laboratory Tests Test 01/21/19 01:02 White Blood Count 9.1 10^3/ul Red Blood Count 4.39 10^6/ul Hemoglobin 13.0 g/dl Hematocrit 40.2 % Mean Corpuscular Volume 91.6 fl Mean Corpuscular Hemoglobin 29.6 pg Mean Corpuscular Hemoglobin Concent 32.3 g/dl Red Cell Distribution Width 12.3 % Platelet Count 223 10^3/UL Mean Platelet Volume 10.5 fl Immature Granulocytes % 0.300 % Neutrophils % 69.5 % Lymphocytes % 20.1 % Monocytes % 8.3 % Eosinophils % 1.2 % Basophils % 0.6 % Nucleated Red Blood Cells % 0.0 /100WBC Immature Granulocytes # 0.030 10^3/ul Neutrophils # 6.3 10^3/ul Lymphocytes # 1.8 10^3/ul Monocytes # 0.8 10^3/ul Eosinophils # 0.1 10^3/ul Basophils # 0.1 10^3/ul Nucleated Red Blood Cells # 0.0 10^3/ul Urine Color YELLOW Urine Clarity CLEAR Urine pH 7.0 Urine Specific [place] 1.018 Urine Ketones NEGATIVE mg/dL Urine Nitrite NEGATIVE mg/dL Urine Bilirubin NEGATIVE mg/dL Urine Urobilinogen NEGATIVE mg/dL Urine Leukocyte Esterase 2+ Pilar/ul Urine Microscopic RBC 2 /HPF Urine Microscopic WBC 33 /HPF Urine Bacteria FEW /HPF Urine Hemoglobin NEGATIVE mg/dL Urine Glucose NEGATIVE mg/dL Urine Total Protein NEGATIVE mg/dl Sodium Level 142 mmol/L Potassium Level 4.1 mmol/L Chloride Level 103 mmol/L Carbon Dioxide Level 27 mmol/L Anion Gap 12 Blood Urea Nitrogen 19 mg/dl Creatinine 0.58 mg/dl Est Glomerular Filtrat Rate mL/min > 60 mL/min Glucose Level 109 mg/dl Calcium Level 9.3 mg/dl Total Bilirubin 0.4 mg/dl Direct Bilirubin 0.00 mg/dl Indirect Bilirubin 0.4 mg/dl Aspartate Amino Transf (AST/SGOT) 32 IU/L Alanine Aminotransferase (ALT/SGPT) 17 IU/L Alkaline Phosphatase 84 IU/L Total Protein 7.7 g/dl Albumin 4.5 g/dl Globulin 3.20 g/dl Albumin/Globulin Ratio 1.40 Current Medications Medications Dose Sig/Jonelle Start Time Status Last (Trade) Ordered Route PRN Stop Time Admin Dose Reason Admin 1 mg ONCE STAT 01/21/19 DC 01/21/19 Hydromorphone IV 00:35 01:23 HCl 01/21/19 00:38 (Dilaudid) Ondansetron 4 mg ONCE STAT 01/21/19 DC 01/21/19 HCl (Zofran IV 00:35 01:23 Inj) 01/21/19 00:38 Procedures/MDM Ordering MD: YASMANY BRANDON DO Location: E/R Room/Bed: PROCEDURE: CT Abdomen and Pelvis Without Intravenous Contrast CLINICAL INDICATION: left flank pain TECHNIQUE: Axial computed tomography images of the abdomen and pelvis without intravenous contrast. Sagittal and coronal reformatted images were created and reviewed. CTDIvol (mGy) = <9.65 mGy>; total DLP (mGy-cm) = <509.51 mGy.cm> This CT exam was performed using one or more of the following dose reduction techniques: automated exposure control, adjustment of the mA and/or kV according to patient size, and/or use of iterative reconstruction technique. DICOM images are available. COMPARISON: CT 01/07/2019 FINDINGS: LUNG BASES: Slight scarring of the lingula again seen. ABDOMEN: LIVER: The top of the liver was excluded from view. This was normal on the prior study. No hepatic masses are seen. GALLBLADDER AND BILE DUCTS: Clips are seen from prior cholecystectomy. No ductal dilation. PANCREAS: Unremarkable No ductal dilation. SPLEEN: Unremarkable No splenomegaly. ADRENALS: Unremarkable No mass. KIDNEYS AND URETERS: Tiny probable complex cyst exophytic off the posterior right kidney is again seen. This has been present since at least 2011. No hydronephrosis or renal calculi are seen. No stones are seen in the ureters. STOMACH AND BOWEL: There are a few mildly dilated left upper quadrant jejunal loops with subtle haziness of the adjacent small bowel mesentery. The appearance is nonspecific and could be due to mild enteritis from a variety of etiologies. This was not as well seen on the prior study. Colonic diverticulosis without evidence of diverticulitis. Moderate stool burden. No evidence for small bowel obstruction, free air, or abscess. PELVIS: APPENDIX: Normal appendix. BLADDER: The urinary bladder is relatively decompressed. No definite stones. Small urachal remnant. REPRODUCTIVE: Unremarkable uterus and ovaries. ABDOMEN and PELVIS: INTRAPERITONEAL SPACE: See above. BONES/JOINTS: Degenerative change of the spine and hips. SOFT TISSUES: Probable right gluteal injection granuloma. Small fat- containing umbilical hernia. Slight scarring from prior umbilical hernia repair. VASCULATURE: Mild atherosclerotic change of the abdominal vasculature. No evidence for aneurysm. LYMPH NODES: Unremarkable No enlarged lymph nodes. OTHER FINDINGS: IMPRESSION: 1. No hydronephrosis. No urolithiasis is seen. 2. There are a few mildly dilated left upper quadrant jejunal loops with subtle haziness of the adjacent small bowel mesentery. The appearance is nonspecific and could be due to mild enteritis from a variety of etiologies. This was not as well seen on the prior study. RPTAT: [facility] Physician Bob Date Time Electronically viewed and signed by Kendra Roque Physician on 01/21/2019 03:41 LE/ CC: YASMANY BRANDON DO [id number] The patient has a mild urinary tract infection also has some hazy loops of bowel in the left upper quadrant which could be infectious. We will treat her with Cipro and Flagyl to cover both of these etiologies as well as some pain control. No evidence of kidney stone Departure Diagnosis: Primary Impression: Left flank pain Additional Impressions: Enteritis UTI (lower urinary tract infection) Condition: Stable YASMANY BRANDON DO Jan 21, 2019 00:35
[2019-01-21] MEDS ORDERED: HYDR-4011 PO (03:46)
[2019-01-21] MEDS ORDERED: CIPR500T4 PO (03:46)
[2019-01-21] MEDS ORDERED: METR500T PO (03:46)
[2019-01-21 05:31] VITALS: BP 141/82; PULSE 65; RESP 18
== END 2019-01-21 05:33 | disposition home or self-care (01) ==
LOC: E/R 23:53
DX: N21.8 Other lower urinary tract calculus (principal); I10 Essential (primary) hypertension; K52.9 Noninfective gastroenteritis and colitis, unspecified
CPT/HCPCS: 36415; 74176; 80053; 81001; 85025; 96374; 96375; J1170; J2405; Z7502

== ENCOUNTER 2019-03-25 23:43 | Emergency (ER) | payer MEDICAID, OTHER ==
[~2019-03-25] VITALS: Ht 152.4 cm; Wt 65.7 kg
[~2019-03-25 23:43] MED LIST changes: +CIPR500T4 PO; +HYDR-4011 PO; +METR500T PO
[2019-03-25 23:48] VITALS: Ht 152.4 cm; Wt 65.7 kg
[2019-03-26] MEDS ORDERED: KETOROLAC 15 MG INJ IV STA (01:38)
[2019-03-26] MEDS ORDERED: LIDOCAINE/MYLANTA 40 ML BTL PO STA (03:03)
[2019-03-26] MEDS ORDERED: FAMOTIDINE 20 MG INJ IV STA (03:03)
[2019-03-26] MEDS ORDERED: BELLADONNA/PHENOBARBITAL TAB PO STA (03:03)
--- NOTE | 2019-03-26 04:12 | ERD ---
ER Documentation Chief Complaint Chief Complaint Burning like CP since 2229 with nausea HPI This is a 57-year-old female with a past medical history of hypertension, hypothyroidism, gastritis, diverticulosis, pancreatitis, previous c holecystectomy who is presenting with exacerbated waxing and waning moderate burning epigastric pain radiating into the throat and mid chest. The patient's symptoms are chronic in nature. She has been evaluated fully for this in the past, including a CT scan and EGD. The patient denies any changes to bowel movements. She denies any constipation or diarrhea. She denies any black or bloody or tarry stools. She does not endorse any dysuria or hematuria or urgency or frequency. The patient denies feeling sick recently. The patient denies fever or chills. The patient has had no headache or vision changes. The patient does not endorse neck or back pain. The patient denies lightheadedness or dizziness. The patient has had no chest pain or trouble breathing. The patient has had no focal deficits. The patient has had no weakness or numbness or tingling to the face or extremities. ROS All systems reviewed and are negative except as per history of present illness. Medications Home Meds Active Scripts Hydrocodone/Acetaminophen ([place] 5-325 Tablet) 1 Each Tablet, 1 TAB PO Q6H PRN for PAIN, #15 TAB Prov:YASMANY BRANDON DO 01/21/19 Metronidazole* (Flagyl*) 500 Mg Tablet, 500 MG PO TID for 7 Days, TAB Prov:YASMANY BRANDON DO 01/21/19 Ciprofloxacin Hcl* (Ciprofloxacin Hcl*) 500 Mg Tablet, 500 MG PO BID for 7 Days, TAB Prov:YASMANY BRANDON DO 01/21/19 Sucralfate* (Carafate*) 1 Gm Tab, 1 GM PO QID, #30 TAB Prov:SALONI GARCÍA 09/29/18 Reported Medications Lisinopril* (Lisinopril*) 10 Mg Tablet, 10 MG PO DAILY, #30 TAB 06/22/18 Pantoprazole* (Pantoprazole*) 40 Mg Tablet.dr, 40 MG PO AC BREAKFAST DINNER, TAB 06/22/18 Acetaminophen* (Acetaminophen*) 650 Mg Tablet, 650 MG PO NEEDED PRN for PAIN AND OR ELEVATED TEMP, #30 TAB 06/17/18 Cholecalciferol (Vitamin D3) (Vitamin D-3) 2,000 Unit Tablet, 2000 UNIT PO DAILY, TAB 06/17/18 Levothyroxine Sodium* (Levothyroxine Sodium*) 50 Mcg Tablet, 50 MCG PO BEFORE BREAKFAST, #30 TAB 05/11/18 Allergies Allergies: Coded Allergies: aspirin (Unverified Allergy, Severe, anaphylaxis, 09/21/18) PMhx/Soc History of Surgery: Yes (CHOLECYSTECTOMY,TONSILLECTOMY, Thyroidectomy) Anesthesia Reaction: No Hx Neurological Disorder: Yes (ANDERSON) Hx Respiratory Disorders: No Hx Cardiac Disorders: Yes (HTN) Hx Psychiatric Problems: Yes (Anxiety) Hx Miscellaneous Medical Probl: Yes (Thyroid sx, pre dm) Hx Alcohol Use: No Hx Substance Use: No Hx Tobacco Use: No Smoking Status: Never smoker FmHx Family History: No diabetes Physical Exam Vitals Vital Signs Date Temp Pulse Resp B/P (MAP) Pulse Ox O2 O2 Flow FiO2 Time Delivery Rate 03/25/19 98.0 71 16 230/99 99 23:48 (142) Physical Exam Const: No acute distress Head: Atraumatic Eyes: Normal Conjunctiva ENT: Normal External Ears, Nose and Mouth. Neck: Full range of motion. No meningismus. Resp: Clear to auscultation bilaterally Cardio: Regular rate and rhythm, no murmurs Abd: Soft, non distended. Mild epigastric pain. Normal bowel sounds Skin: No petechiae or rashes Back: No midline or flank tenderness Ext: No cyanosis, or edema Neur: Awake and alert Psych: Normal Mood and Affect Result Diagram: 03/26/19 0150 03/26/19 0150 Results 24 hrs Laboratory Tests Test 03/26/19 01:50 White Blood Count 5.9 10^3/ul Red Blood Count 4.52 10^6/ul Hemoglobin 13.3 g/dl Hematocrit 40.4 % Mean Corpuscular Volume 89.4 fl Mean Corpuscular Hemoglobin 29.4 pg Mean Corpuscular Hemoglobin Concent 32.9 g/dl Red Cell Distribution Width 12.1 % Platelet Count 229 10^3/UL Mean Platelet Volume 10.5 fl Immature Granulocytes % 0.200 % Neutrophils % 51.7 % Lymphocytes % 36.1 % Monocytes % 8.1 % Eosinophils % 3.2 % Basophils % 0.7 % Nucleated Red Blood Cells % 0.0 /100WBC Immature Granulocytes # 0.010 10^3/ul Neutrophils # 3.1 10^3/ul Lymphocytes # 2.1 10^3/ul Monocytes # 0.5 10^3/ul Eosinophils # 0.2 10^3/ul Basophils # 0.0 10^3/ul Nucleated Red Blood Cells # 0.0 10^3/ul Sodium Level 142 mmol/L Potassium Level 4.1 mmol/L Chloride Level 105 mmol/L Carbon Dioxide Level 28 mmol/L Anion Gap 9 Blood Urea Nitrogen 18 mg/dl Creatinine 0.65 mg/dl Est Glomerular Filtrat Rate mL/min > 60 mL/min Glucose Level 110 mg/dl Calcium Level 9.2 mg/dl Total Bilirubin 0.5 mg/dl Direct Bilirubin 0.00 mg/dl Indirect Bilirubin 0.5 mg/dl Aspartate Amino Transf (AST/SGOT) 30 IU/L Alanine Aminotransferase (ALT/SGPT) 22 IU/L Alkaline Phosphatase 90 IU/L Troponin I < 0.012 ng/ml Total Protein 7.8 g/dl Albumin 4.4 g/dl Globulin 3.40 g/dl Albumin/Globulin Ratio 1.29 Lipase 101 U/L Current Medications Medications Dose Sig/Jonelle Start Time Status Last (Trade) Ordered Route PRN Stop Time Admin Dose Reason Admin Ketorolac 15 mg ONCE STAT 03/26/19 DC 03/26/19 Tromethamine IV 01:38 03:05 (Toradol) 03/26/19 01:40 Famotidine 20 mg ONCE STAT 03/26/19 DC 03/26/19 (Pepcid Iv) IV 03:03 03:11 03/26/19 03:05 40 ml ONCE STAT 03/26/19 DC 03/26/19 Miscellaneous PO 03:03 03:11 Medication 03/26/19 03:05 (Gi Cocktail (2)) [place]/ 2 tab ONCE STAT 03/26/19 DC 03/26/19 Phenobarbital PO 03:03 03:11 () 03/26/19 03:05 Procedures/MDM MDM The patient's presentation warrants further investigation. Previous medical records, if available, were reviewed. LABS The patient's laboratory testing was obtained and reviewed. No emergent treatment was required unless described below. CBC: No E/o systemic infection or severe anemia or thrombocytopenia Chemistry: No E/o severe acidosis or alkalosis or renal failure or liver disease or diabetic ketoacidosis Lipase: No E/o pancreatitis Troponin: No E/o acute ischemia EKG EKG read by me: Rate/Rhythm: Regular rate and rhythm at a rate of 79 bpm Intervals: Normal [place]: Normal Impression: No evidence of acute ischemia or arrhythmia IMAGING Imaging and Radiology interpretation reviewed. CXR 1V Interpreted by me Soft Tissue: No acute abnormalities Bones: No acute abnormalities Mediastinum/Cardiac Silhouette: Unremarkable. No widened mediastinum. Lungs: No acute abnormalities. Normal pulmonary vasculature. No pneumothorax. No pulmonary edema. Clear costal diaphragmatic angles. No pleural effusions. No opacity or consolidations concerning for pneumonia. TREATMENT/DISPOSITION The patient presents for chronic exacerbating epigastric pain. The patient also endorses chest pain. The patient was treated with Pepcid and a GI cocktail with significant improvement of her symptoms. I do suspect gastritis to be the etiology of her symptoms. The patient presents with abdominal pain. The patient does not have any evidence of peritonitis. The patient does not have clinical symptoms concerning for mesenteric ischemia or ischemic colitis. The patient does not have right upper quadrant tenderness, and I have low suspicion for gallstones, cholecystitis or biliary colic. The patient does not have left upper quadrant tenderness. Her lipase is unremarkable. I have low suspicion for pancreatitis. The patient does not have any right lower quadrant tenderness, or periumbilical tenderness. I have low suspicion for appendicitis. The patient does not have suprapubic tenderness. I have decreased suspicion for cystitis. The patient does not have any left lower quadrant tenderness, and I have low suspicion for diverticulosis or diverticulitis. The patient does not have any flank tenderness. The patient does not have gross hematuria. I have decreased suspicion for nephrolithiasis or renal colic. The patient does not have any palpable pulsatile mass or severe abdominal pain radiating to the back. I have low suspicion for aortic aneurysm, dissection or rupture. A cardiac work-up was also completed. The patient's chest xray does not reveal pneumonia or pneumothorax or pleural effusions or pulmonary edema. The patient does not have a widened mediastinum and does not have signs or symptoms conc erning for thoracic aortic aneurysm or dissection. The patient does not have pneumomediastinum or signs concerning for esophageal tear or rupture. The patient has no clinical or radiographic signs of pericardial effusion or tamponade. The patient does not have pneumoperitoneum and I have decreased suspicion of viscus perforation as possible referred pain. The patient does not have a history of heart failure and I have low suspicion for this. The patient does not have a diagnosis of COPD and is not wheezing today. The patient is not tachypneic or hypoxic. The patient is breathing comfortably and without pleuritic pain. The patient is not on hormonal therapy. The patient has no history of clotting or bleeding disorders. The patient has no calf tenderness. The patient has had no hemoptysis. I have decreased suspicion for PE. The patient's troponin and EKG are reassuring. I have low suspicion for acute coronary syndrome. The patient's HEART score is equal to or less than 3. This stratifies the patient into the low risk (<1%) group for an major adverse cardiac event within the next 30 days. Shared decision making was enacted. The risks and benefits of admission and discharge were discussed with the patient and it was ultimately decided that the patient would be discharged with close outpatient follow up and evaluation for functional testing within 72 hours. DISCHARGE Upon reevaluation of the patient, symptoms have improved. No emergent diagnoses were identified. At this time, I feel that the patient stable for discharge. The patient was instructed to follow-up with a primary care physician in 1-3 days. The patient will be given strict precautions with which to return to the emergency department. Prescriptions: Zofran, Pepcid The patient's blood pressure was elevated at greater than 120/80 while in the emergency department. The patient was otherwise stable with no evidence of hypertensive urgency or emergency. The patient does not require admission for blood pressure control. I have discussed with the patient the risks of hypertension. I have instructed the patient to return to the ER for any new or worsening symptoms including chest pain, shortness of breath, headache, blurred vision, confusion, nausea, vomiting or LOC. I have advised the patient to follow up with the primary care physician for outpatient monitoring and treatment for hypertension in 1-3 days. Disclaimer: Inadvertent spelling and grammatical errors are likely due to EHR/dictation software use and do not reflect on the overall quality of patient care. Note that the electronic time recorded on this note does not necessarily reflect the actual time of the patient encounter. Departure Diagnosis: Primary Impression: Epigastric pain Additional Impression: Nonspecific chest pain Condition: Stable Patient Instructions: Epigastric Pain (Uncertain Cause), Chest Pain, Uncertain Cause Additional Instructions: Thank you for for coming to [facility] for your care today. Please ask your nurse or provider if you have questions about your care today and do not leave until all your questions have been answered. Please use any medications given as directed and follow-up with your doctor (or the doctor you were referred to) in the next 1-3 days. If you do not have a primary care doctor you may follow up at the [facility] or [facility] (listed below). You may also use motrin and tylenol as needed for fever and/or pain unless instructed otherwise by your provider or nurse. Indications for more urgent follow-up have been discussed, but you may return to the Emergency Department at ANY time for any worrisome or worsening symptoms. If you have abdominal pain, please know that no test or exam you received is perfect and you should follow up within 8 hours for continued pain. If you had any imaging studies today, such as an X-Ray or CT Scan, these studies will be reviewed later by a radiologist. You will be called if there are important findings that were not identified today, so make sure the contact information you provided at registration is correct. If you received any narcotic pain control medicine today, such as Vicodin, Morphine or Dilaudid, your coordination and judgment may be affected for a number of hours. Please do not drive or operate heavy machinery, and you may want someone to assist you at home. If you were given a prescription for narcotic medication, be aware that it is very addictive- use sparingly and only if necessary. PLEASE SEEK FURTHER EVALUATION AND MANAGEMENT AT YOUR DOCTORS OFFICE WITHIN THE NEXT 1-3 DAYS. IT IS YOUR RESPONSIBILITY TO MAKE AN APPOINTMENT FOR FOLOW-UP CARE. IF YOU HAVE A PRIMARY DOCTOR, PLEASE CALL THEIR OFFICE TO SCHEDULE AN APPOINTM ENT FOR FOLLOW UP. IF YOU DO NOT HAVE A PRIMARY DOCTOR YOU CAN CALL OUR PHYSICIAN REFERRAL HOTLINE AT IF YOU CAN NOT AFFORD TO SEE A PHYSICIAN YOU CAN CHOSE FROM THE FOLLOWING [facility]: [facility] [address] [facility]. [facility] [address] [facility] [address] [facility] [address] [facility] [address] [facility] [address] [facility]. [facility]. [address] LIZETTE MARRERO MD March 26, 2019 04:11
[2019-03-26] MEDS ORDERED: ONDA4TAB8 PO (04:15)
[2019-03-26] MEDS ORDERED: FAMO-96 PO (04:15)
[2019-03-26 04:45] VITALS: BP 111/67; PULSE 60; RESP 16
== END 2019-03-26 04:46 | disposition home or self-care (01) ==
LOC: E/R 23:43
DX: R07.9 Chest pain, unspecified (principal); R10.13 Epigastric pain; E03.9 Hypothyroidism, unspecified; I10 Essential (primary) hypertension; R40.2142 Coma scale, eyes open, spontaneous, at arrival to emergency department; R40.2252 Coma scale, best verbal response, oriented, at arrival to emergency department; R40.2362 Coma scale, best motor response, obeys commands, at arrival to emergency department
CPT/HCPCS: 36415; 71045; 80053; 83690; 84484; 85025; 96374; 96375; J1885; Z7502; Z7610; 93005

== ENCOUNTER 2019-05-29 18:06 | Emergency (ER) | payer MEDICAID ==
[~2019-05-29] VITALS: Ht 157.5 cm; Wt 67.7 kg
[~2019-05-29 18:06] MED LIST changes: +ACET500C5 PO; +AMOX500C2 PO; +FAMO-96 PO; +ONDA4TAB8 PO
[2019-05-29 18:22] VITALS: BP 133/75; PULSE 67; RESP 18; Ht 157.5 cm; Wt 67.7 kg
--- NOTE | 2019-05-29 18:37 | ERD ---
ER Documentation Chief Complaint Chief Complaint left ear pain x 4 hrs, after ear lavage @ clinic HPI Patient is a 58-year-old female, past medical history of hypertension, pre-DM type II, presents the ER for concerns of left ear pain after ear lavage 4 hours ago. Patient states she had intermittent left ear pain for the last 2 weeks. Patient states she went to her primary care physician they performed a ear lavage. Patient states after the ear lavage she had improvement in pain however the pain is gotten significantly worse since that time. Patient has no fevers or chills. She denies any dental pain, cough, rhinorrhea, nausea, vomiting, dumping, chest pain, shortness of breath or LOC. ROS All systems reviewed and are negative except as per history of present illness. Medications Home Meds Active Scripts Acetaminophen* (Tylophen*) 500 Mg Capsule, 1 CAP PO Q6H PRN for PAIN AND OR ELEVATED TEMP, #20 CAP Prov:ADAN CASTRO PA-C 05/29/19 Amoxicillin* (Amoxicillin*) 500 Mg Cap, 500 MG PO BID for 10 Days, CAP Prov:ADAN CASTRO PA-C 05/29/19 Ondansetron Hcl* (Zofran*) 4 Mg Tablet, 4 MG PO Q8H PRN for NAUSEA AND/OR VOMITING, #20 TAB Prov:LIZETTE MATUTE MD 03/26/19 Famotidine* (Pepcid*) 20 Mg Tablet, 20 MG PO BID for 14 Days, TAB Prov:LIZETTE MATUTE MD 03/26/19 Hydrocodone/Acetaminophen ([place] 5-325 Tablet) 1 Each Tablet, 1 TAB PO Q6H PRN for PAIN, #15 TAB Prov:YASMANY BRANDON DO 01/21/19 Metronidazole* (Flagyl*) 500 Mg Tablet, 500 MG PO TID for 7 Days, TAB Prov:YASMANY BRANDON AYamil DO 01/21/19 Ciprofloxacin Hcl* (Ciprofloxacin Hcl*) 500 Mg Tablet, 500 MG PO BID for 7 Days, TAB Prov:YASMANY BRANDON DO 01/21/19 Sucralfate* (Carafate*) 1 Gm Tab, 1 GM PO QID, #30 TAB Prov:SALONI GARCÍA 09/29/18 Reported Medications Lisinopril* (Lisinopril*) 10 Mg Tablet, 10 MG PO DAILY, #30 TAB 06/22/18 Pantoprazole* (Pantoprazole*) 40 Mg Tablet.dr, 40 MG PO AC BREAKFAST DINNER, TAB 06/22/18 Acetaminophen* (Acetaminophen*) 650 Mg Tablet, 650 MG PO NEEDED PRN for PAIN AND OR ELEVATED TEMP, #30 TAB 06/17/18 Cholecalciferol (Vitamin D3) (Vitamin D-3) 2,000 Unit Tablet, 2000 UNIT PO DAILY, TAB 06/17/18 Levothyroxine Sodium* (Levothyroxine Sodium*) 50 Mcg Tablet, 50 MCG PO BEFORE BREAKFAST, #30 TAB 05/11/18 Allergies Allergies: Coded Allergies: aspirin (Unverified Allergy, Severe, anaphylaxis, 09/21/18) PMhx/Soc History of Surgery: Yes (CHOLECYSTECTOMY,TONSILLECTOMY, Thyroidectomy) Anesthesia Reaction: No Hx Neurological Disorder: Yes (ANDERSON) Hx Respiratory Disorders: No Hx Cardiac Disorders: Yes (HTN) Hx Psychiatric Problems: Yes (Anxiety) Hx Miscellaneous Medical Probl: Yes (Thyroid sx, pre dm) Hx Alcohol Use: No Hx Substance Use: No Hx Tobacco Use: No FmHx Family History: No diabetes Physical Exam Vitals Vital Signs Date Temp Pulse Resp B/P (MAP) Pulse Ox O2 O2 Flow FiO2 Time Delivery Rate 05/29/19 97.4 67 18 133/75 97 18:22 (94) Physical Exam GENERAL: Well-developed, well-nourished female. Appears in no acute distress. HEAD: Normocephalic, atraumatic. No deformities or ecchymosis. EYE: Pupils equal, round, and reactive to light. EOMs intact. No conjunctival erythema. No eye discharge. ENT: External ear without any masses or tenderness. Auditory canals clear bilaterally. Left TM appears erythematous and bulging. TM appears normal. No TM perforation noted bilaterally. No mastoid tenderness or swelling noted bilaterally.. Nasal mucosa pink with no discharge. Oropharynx is pink without any tonsillar erythema or exudates. No uvula deviation. No kissing tonsils. NECK: Supple. No meningismus. Normal ROM of the neck. LUNG: Clear to auscultation bilaterally. No rhonchi, wheezing, rales or coarse breath sounds. HEART: Regular rate and rhythm. No murmurs, rubs or gallops. EXTREMITES: Equal pulses bilaterally. No peripheral clubbing, cyanosis or edema. No unilateral leg swelling. NEUROLOGIC: Alert and oriented to person, place and time. Moving all four extremities. 5/5 strength in all extremities. Normal speech. Steady gait. SKIN: Normal color. Warm and dry. No rashes or lesions. Procedures/MDM MEDICAL DECISION MAKING: This is a 58-year-old female who presents with left ear pain after ear irrigation.. Vital signs were reviewed. Patient was afebrile. Patient was not hypoxic. ENT exam does reveal concerns of otitis media. No evidence of TM perforation. Patient will be treated with course of amoxicillin and advised to take Tylenol for pain. Low suspicion for tympanic membrane perforation, masto iditis, otic barotrauma, TMJ dysfunction, dental pain, ACS. PRESCRIPTIONS: Tylenol, amoxicillin DISCHARGE: At this time, patient is stable for discharge and outpatient management. I have instructed the patient to follow-up with his/her primary care physician in 1-2 days. I have discussed with the patient the possibility of needing to see a specialist for further workup and diagnostic studies if the pain persists. I have instructed the patient to promptly return to the ER at any time for any new or worsening symptoms including increased pain, fever, swelling, discharge or hearing loss. The patient and/or family expressed understanding of and agreement with this plan. All questions were answered. Home care instructions were provided. Disclaimer: Inadvertent spelling and grammatical errors are likely due to EHR/dictation software use and do not reflect on the overall quality of patient care. Also, please note that the electronic time recorded on this note does not necessarily reflect the actual time of the patient encounter. Departure Diagnosis: Primary Impression: Otitis media Otitis media type: unspecified Chronicity: acute Qualified Codes: H66.90 - Otitis media, unspecified, unspecified ear Condition: Fair Patient Instructions: Otitis Media, Abx Tx (Adult) Referrals: COMMUNITY CLINICS YOU HAVE RECEIVED A MEDICAL SCREENING EXAM AND THE RESULTS INDICATE THAT YOU DO NOT HAVE A CONDITION THAT REQUIRES URGENT TREATMENT IN THE EMERGENCY DEPARTMENT. FURTHER EVALUATION AND TREATMENT OF YOUR CONDITION CAN WAIT UNTIL YOU ARE SEEN IN YOUR DOCTORS OFFICE WITHIN THE NEXT 1-2 DAYS. IT IS YOUR RESPONSIBILITY TO MAKE AN APPOINTMENT FOR FOLOW-UP CARE. IF YOU HAVE A PRIMARY DOCTOR --you should call your primary doctor and schedule an appointment IF YOU DO NOT HAVE A PRIMARY DOCTOR YOU CAN CALL OUR PHYSICIAN REFERRAL HOTLINE AT IF YOU CAN NOT AFFORD TO SEE A PHYSICIAN YOU CAN CHOSE FROM THE FOLLOWING [facility] [address] [facility] [address] [facility] [address] [facility] [address] [facility] [address] [facility]. [facility] [address] [facility]. [facility] YOU HAVE RECEIVED A MEDICAL SCREENING EXAM AND THE RESULTS INDICATE THAT YOU DO NOT HAVE A CONDITION THAT REQUIRES URGENT TREATMENT IN THE EMERGENCY DEPARTMENT. FURTHER EVALUATION AND TREATMENT OF YOUR CONDITION CAN WAIT UNTIL YOU ARE SEEN IN YOUR DOCTORS OFFICE WITHIN THE NEXT 1-2 DAYS. IT IS YOUR RESPONSIBILITY TO MAKE AN APPOINTMENT FOR FOLOW-UP CARE. IF YOU HAVE A PRIMARY DOCTOR --you should call your primary doctor and schedule and appointment IF YOU DO NOT HAVE A PRIMARY DOCTOR YOU CAN CALL OUR PHYSICIAN REFERRAL HOTLINE AT . IF YOU CAN NOT AFFORD TO SEE A PHYSICIAN YOU CAN CHOSE FROM THE FOLLOWING [facility]: [facility] [address] [place] [address] [facility] [address] [place] [address] [facility] [address] [place] [address] [facility] URGENT CARE/SPECIALTIES Additional Instructions: Llame al doctor MAANA y jennifer izabela HANS PARA DENTRO DE 1-2 AGUILERA.Dgale a la secretaria que nosotros le instruimos hacer esta hans.Avise o llame si tiwari condicin se empeora antes de la hans. Regresa aqui si peor o no mejor. ADAN CASTRO PA-C May 29, 2019 18:37
== END 2019-05-29 18:29 | disposition home or self-care (01) ==
LOC: E/R 18:06
DX: H66.92 Otitis media, unspecified, left ear (principal); I10 Essential (primary) hypertension
CPT/HCPCS: 99283

== ENCOUNTER 2019-09-03 07:26 | Emergency (ER) | payer MEDICAID ==
[~2019-09-03] VITALS: Ht 149.9 cm; Wt 66.6 kg
[~2019-09-03 07:26] MED LIST changes: -ACET-2047 PO; +ACET-2343 PO; +ATEN-51 ORAL; +GABA100C14 ORAL; +LEVO75TA5 ORAL; +LISI-471 ORAL; +NITR100C6 ORAL; +PREMVAG VAG
[2019-09-03 07:28] VITALS: Ht 149.9 cm; Wt 66.6 kg
[2019-09-03] MEDS ORDERED: KETOROLAC 15 MG INJ IV STA (07:56)
[2019-09-03] MEDS ORDERED: SOD CHLORIDE 0.9% 500 ML IV STA (07:56)
[2019-09-03 09:28] VITALS: BP 132/73; PULSE 61; RESP 18
== END 2019-09-03 09:31 | disposition home or self-care (01) ==
LOC: E/R 07:26
DX: R10.84 Generalized abdominal pain (principal); E03.9 Hypothyroidism, unspecified; I10 Essential (primary) hypertension
CPT/HCPCS: 36415; 80053; 81003; 83690; 85025; 87086; 96374; J1885; J7040; Z7502